=== PATIENT | male | born 1935 | race Caucasian/White ===

== ENCOUNTER 2016-11-10 10:25 | Emergency (ER) | payer MEDICARE ==
[~2016-11-10] VITALS: Ht 182.9 cm; Wt 82.0 kg
[~2016-11-10 10:25] MED LIST: FLEXERIL PO; LORTAB 10-325 M1 TAB PO; NAPROSYN500 MG PO; PACERONE200 MG PO; UNABLE TO RECONCILE
[2016-11-10 10:56] LABS: HEMATOCRIT 38.4 % (39.0-50.0); HEMOGLOBIN 12.4 g/dl (14.0-18.0); IMMATURE GRANULOCYTES 0.2 % (0.0-1.0); MEAN CORPUSCULAR HGB 27.4 pG CALC (26.0-32.0); MEAN CORPUSCULAR HGB CONC 32.3 g/L CALC (32.0-36.0); NEUT# 2.84 thou/uL (1.82-7.42); RED BLOOD COUNT 4.52 mill/uL (4.70-6.10); RED CELL DISTRI WIDTH 14.1 % (11.5-15.5)
[2016-11-10 11:14] LABS: INTERNATIONAL NORMALIZED RATIO 0.9 RATIO (0.7-1.3)
[2016-11-10 11:16] LABS: ALBUMIN 4.1 g/dL (3.2-5.0); ALKALINE PHOSPHATASE 79 u/l (38-126); ANION GAP 12 (6-22 (CALC)); BILIRUBIN, TOTAL 0.5 mg/dL (0.0-1.4); BUN 15 mg/dL (8-23); BUN/CREATININE RATIO 14 (12-20 (CALC)); CALCIUM 8.6 mg/dL (8.4-10.2); CARBON DIOXIDE 28 mmol/l (22-30); CHLORIDE 103 mmol/l (95-108); GFR > 60 ML/MIN (>=60 (CALC)); GFR FOR AFR.AMER. > 60 ML/MIN (>=60 (CALC)); GLUCOSE 93 mg/dL (82-115); SGOT/AST 29 u/l (19-48); SGPT/ALT 27 u/l (11-66); SODIUM 139 mmol/l (137-146); TOTAL PROTEIN 7.7 g/dL (6.3-8.2)
--- NOTE | 2016-11-10 11:20 | NUR ---
PT WAS LAYING IN BED AND EKG WAS ABOUT TO BE DONE ON HIM. HIS WAS THERE BUT DOESN'T SEEM TO REMEMBER ANY MEDICATION HE TAKES. PT DOESNT REMEMBER WELL. HIS PROMISED TO SEND LIST TO PHARMACY TOMORROW. I CALLED [facility] IN BOTH [place] AND [facility] AND ONLY GOT ONE MEDICATION HE TAKES PREDNISONE 10MG
[2016-11-10] MEDS ORDERED: PREDNISONE10 MG PO (11:25)
[2016-11-10] MEDS ORDERED: SERTRALINE ×2 (11:26→11:28)
[2016-11-10 11:28] LABS: MYOGLOBIN 57 ng/mL (0 - 121)
[2016-11-10] MEDS ORDERED: ATORVASTATI80 MG/TAB (11:28)
[2016-11-10 14:07] VITALS: BP 141/75
== END 2016-11-10 14:27 | disposition home or self-care (01) ==
LOC: ED 10:25
PROVIDERS: Emergency Medicine
DX: R20.8 Other disturbances of skin sensation (principal); I10 Essential (primary) hypertension; I25.10 Atherosclerotic heart disease of native coronary artery without angina pectoris; F03.90 Unspecified dementia, unspecified severity, without behavioral disturbance, psychotic disturbance, mood disturbance, and anxiety; F41.9 Anxiety disorder, unspecified; F32.9 Major depressive disorder, single episode, unspecified; I25.2 Old myocardial infarction; M54.30 Sciatica, unspecified side; R07.9 Chest pain, unspecified; Z79.899 Other long term (current) drug therapy; Z95.810 Presence of automatic (implantable) cardiac defibrillator

== ENCOUNTER 2018-02-21 06:48 | Emergency (ER) | payer MEDICARE ==
[~2018-02-21] VITALS: Ht 182.9 cm; Wt 90.0 kg
[~2018-02-21 06:48] MED LIST changes: +ATORVASTATI80 MG/TAB; +PREDNISONE10 MG PO; +SERTRALINE
[2018-02-21] MEDS ORDERED: AMOXICILLIN500 MG PO ×2 (07:20→08:06)
[2018-02-21] MEDS ORDERED: TORADOL PO ×2 (07:20→08:06)
[2018-02-21 08:02] VITALS: BP 146/87
== END 2018-02-21 08:10 | disposition home or self-care (01) ==
LOC: ED 06:48
DX: K04.7 Periapical abscess without sinus (principal); K05.10 Chronic gingivitis, plaque induced